=== PATIENT | female | born 1980 | race Hispanic/Latino ===

== ENCOUNTER 2018-10-22 04:28 | Emergency (ER) | payer OTHER ==
[~2018-10-22 04:28] MED LIST: SULF1TAB42 PO; TYL3 PO
[2018-10-22] MEDS ORDERED: PREDNISONE 20 MG TABLET ONE (05:40)
[2018-10-22] MEDS ORDERED: ERYTHROMYCIN BASE 0.5% OPHTH OINT 1 GM TUBE ONE (05:40)
== END 2018-10-22 06:14 | disposition home or self-care (01) ==
LOC: EDH 04:28
DX: H01.006 Unspecified blepharitis left eye, unspecified eyelid (principal); H01.003 Unspecified blepharitis right eye, unspecified eyelid; Z98.51 Tubal ligation status